=== PATIENT | male | born 1980 | race Caucasian/White ===

== ENCOUNTER → 2017-04-18 | Emergency (ER) | payer MEDICAID, OTHER ==
[~2017-04-18] VITALS: Ht 170.2 cm; Wt 99.8 kg
--- NOTE | 2017-04-18 14:30 | NUR ---
PT PRESENTED TO THE ER WITH A C/O RT KNEE PAIN. PT AMBULATED TO BED #4. URINE SAMPLE OBTAINED.
[2017-04-18 16:10] VITALS: BP 138/89
--- NOTE | 2017-04-18 16:11 | NUR ---
PT REC'D AN ETTA WRAP AND CRUTCHES Crutches dispensed. Pt instructed on proper use of crutches. Patient able to demonstrate correct use of crutches.
--- NOTE | 2017-04-18 16:11 | NUR ---
Patient discharged to home in stable condition. Written and verbal after care instructions given. Patient verbalizes understanding of instruction AND RX. PT AMBULATED OUT WITH CRUTCHES. VSS.
== END | disposition home or self-care (01) ==
LOC: ER 14:09
DX: M25.561 Pain in right knee (principal); W18.09XA Striking against other object with subsequent fall, initial encounter; Y93.89 Activity, other specified; Y92.89 Other specified places as the place of occurrence of the external cause; Y99.8 Other external cause status
CPT/HCPCS: 73564; 99284; A4606; Z7610

== ENCOUNTER 2017-06-24 11:06 | Emergency (ER) | payer OTHER ==
[~2017-06-24] VITALS: Ht 170.2 cm; Wt 98.9 kg
[2017-06-24 11:16] VITALS: BP 143/99
== END 2017-06-24 12:01 | disposition home or self-care (01) ==
LOC: ER 11:08
DX: J11.1 Influenza due to unidentified influenza virus with other respiratory manifestations (principal); J40 Bronchitis, not specified as acute or chronic; R19.7 Diarrhea, unspecified
CPT/HCPCS: A4606; Z7610

== ENCOUNTER 2018-06-07 10:21 | Emergency (ER) | END 2018-06-07 11:02 | disposition home or self-care (01) | DX: J20.9 Acute bronchitis, unspecified (principal) ==

== ENCOUNTER 2019-11-04 21:38 | Emergency (ER) | payer MEDICAID, OTHER ==
[~2019-11-04] VITALS: Ht 170.2 cm; Wt 79.4 kg
--- NOTE | 2019-11-04 22:20 | NUR ---
BIBSELF C/O R FOOT PAIN S/O STEPPED ON NAIL X10HR TIMEKEEPER TDAT NOT UP TO DATE, TO ER BED 4 AWAITING MD IRIZARRY
[2019-11-04] MEDS ORDERED: TDAP [DIPH/PERTUSSIS/TET] 0.5 ML VIAL IM ONE ×2 (22:28→22:30)
[2019-11-04 23:21] VITALS: BP 125/76
== END 2019-11-04 23:21 | disposition home or self-care (01) ==
LOC: ER 21:38
DX: S91.331A Puncture wound without foreign body, right foot, initial encounter (principal); W22.8XXA Striking against or struck by other objects, initial encounter; Y93.89 Activity, other specified; Y92.89 Other specified places as the place of occurrence of the external cause; Y99.8 Other external cause status
CPT/HCPCS: 73630-TC; 90715

== ENCOUNTER 2022-10-27 09:07 | Inpatient (IN) | payer MEDICAID ==
[~2022-10-27] VITALS: Ht 170.2 cm; Wt 83.9 kg
[2022-10-27] MEDS ORDERED: IV NS 0.9% 1,000 ML BAG IV ONE (09:30)
[2022-10-27] MEDS ORDERED: ONDANSETRON HCL/PF 4 MG/2 ML VIAL IVP ONE (09:30)
[2022-10-27 09:39] LABS: BILIRUBIN,URINE NEGATIVE (NEGATIVE); COLOR,URINE YELLOW (YELLOW); LEUKOCYTE ESTERASE ,URINE NEGATIVE (NEGATIVE); NITRITE, URINE NEGATIVE (NEGATIVE); PROTEIN,URINE NEGATIVE (NEGATIVE); UGLUCOSE NEGATIVE (NEGATIVE); UROBILINOGEN,URINE 0.2 EU/dL (0.2)
[2022-10-27] MEDS ORDERED: ONDANSETRON HCL/PF 4 MG/2 ML VIAL ONE (09:43)
[2022-10-27 09:45] LABS: BACTERIA,URINE Rare /HPF (None Seen); RBC,URINE 0-2 /HPF (0-2); SQUAMOUS EPITHELIAL CELL,UR Few /HPF (None Seen); WBC,URINE 0-2 /HPF (0-3)
[2022-10-27 09:58] LABS: CALCIUM, SERUM 8.8 mg/dL (8.5-10.1); CREATININE 0.9 mg/dL (0.6-1.3); POTASSIUM 4.4 mmol/L (3.5-5.1)
[2022-10-27] MEDS ORDERED: MORPHINE SULFATE INJ 2 MG/ML DISP.SYRIN IV ONE (10:00)
[2022-10-27] MEDS ORDERED: MORPHINE SULFATE INJ 4 MG/ML DISP.SYRIN ONE (10:10)
[2022-10-27 11:22] LABS: BASOPHILS % (AUTO) 0.3 % (0.0-2.0); EOSINOPHILS % (AUTO) 1.8 % (0.0-6.0); HEMATOCRIT 42 % (39-51); HEMOGLOBIN 14.1 g/dL (13.5-17.5); LYMPHOCYTES # (AUTO) 2.2 K/uL (0.8-4.8); LYMPHOCYTES % (AUTO) 29.8 % (20.0-44.0); MEAN CORPUSCULAR HGB CONC 34 g/dl (31.0-36.0); MEAN CORPUSCULAR VOLUME 93 fL (80-96); MONOCYTES # (AUTO) 0.6 K/uL (0.1-1.30); MONOCYTES % (AUTO) 8.7 % (2.0-12.0); NEUTROPHILS # (AUTO) 4.3 K/uL (1.8-8.9); NEUTROPHILS % (AUTO) 59.4 % (43.0-81.0); PLATELET COUNT (AUTO) 176 K/uL (150-450); RED BLOOD CELL COUNT(AUTO) 4.49 MIL/uL (4.5-6.0); WHITE BLOOD COUNT (AUTO) 7.3 K/uL (4.3-11.0)
[2022-10-27] MEDS ORDERED: PIPERACILLIN /TAZOBACTAM 3.375 G in IV D5W 50 ML IV ONE (12:00)
[2022-10-27 20:00] VITALS: BP 151/95
[2022-10-27] MEDS ORDERED: HYDROCODONE/APAP 5/325MG TABLET PO PRN (21:00)
[2022-10-27] MEDS ORDERED: Potassium Chloride 10 MEQ in IV D5/ 0.9% NACL 1,000 ML IV PRN (21:00)
[2022-10-27] MEDS ORDERED: ACETAMINOPHEN 325 MG TABLET PO PRN (21:00)
[2022-10-27] MEDS ORDERED: ZOLPIDEM TARTRATE 5 MG TABLET PO PRN (21:00)
[2022-10-27] MEDS ORDERED: HYDROMORPHONE MDV 0.5 MG in IV D5W 50 ML IV PRN (21:00)
[2022-10-27] MEDS ORDERED: ONDANSETRON HCL/PF 4 MG/2 ML VIAL IV PRN (21:00)
[2022-10-27] MEDS ORDERED: PIPERACI/TAZO 3.375GM/D5W 50ML PB IV ONE (23:10)
[2022-10-27] MEDS: PIPERACILLIN /TAZOBACTAM 3.375 G in IV D5W 50 ML IV SCH (23:32)
[2022-10-27] MEDS: IV D5/ 0.9% NACL 1,000 ML IV PRN (23:54)
[2022-10-28] MEDS ORDERED: PIPERACI/TAZO 3.375GM/D5W 50ML PB IV ONE (05:05)
[2022-10-28] MEDS: PIPERACILLIN /TAZOBACTAM 3.375 G in IV D5W 50 ML IV SCH ×4 (05:23→23:15)
[2022-10-28 08:00] VITALS: BP 125/71
[2022-10-28 08:05] LABS: BASOPHILS % (AUTO) 0.4 % (0.0-2.0); EOSINOPHILS % (AUTO) 1.7 % (0.0-6.0); HEMATOCRIT 42 % (39-51); LYMPHOCYTES # (AUTO) 1.5 K/uL (0.8-4.8); LYMPHOCYTES % (AUTO) 24.8 % (20.0-44.0); MEAN CORPUSCULAR HGB CONC 34 g/dl (31.0-36.0); MEAN CORPUSCULAR VOLUME 93 fL (80-96); MONOCYTES # (AUTO) 0.7 K/uL (0.1-1.30); MONOCYTES % (AUTO) 10.5 % (2.0-12.0); NEUTROPHILS # (AUTO) 3.9 K/uL (1.8-8.9); NEUTROPHILS % (AUTO) 62.6 % (43.0-81.0); PLATELET COUNT (AUTO) 171 K/uL (150-450); RED BLOOD CELL COUNT(AUTO) 4.45 MIL/uL (4.5-6.0); WHITE BLOOD COUNT (AUTO) 6.3 K/uL (4.3-11.0)
[2022-10-28 08:30] LABS: ALBUMIN 3.6 g/dL (3.4-5.0); BILIRUBIN,TOTAL 0.7 mg/dL (0.2-1.0); CALCIUM, SERUM 8.9 mg/dL (8.5-10.1); CREATININE 0.9 mg/dL (0.6-1.3); MAGNESIUM 2.3 mg/dL (1.8-2.4); POTASSIUM 3.9 mmol/L (3.5-5.1); TOTAL PROTEIN, SERUM 6.5 g/dL (6.4-8.2)
[2022-10-28] MEDS: IV D5/ 0.9% NACL 1,000 ML IV PRN ×2 (10:37→23:32)
[2022-10-28] MEDS: HYDROMORPHONE 1 MG/1 ML DISP.SYRIN IV PRN ×2 (12:54→22:32)
[2022-10-28 16:18] VITALS: BP 115/77
[2022-10-28 20:00] VITALS: BP 138/80
[2022-10-29] MEDS: PIPERACILLIN /TAZOBACTAM 3.375 G in IV D5W 50 ML IV SCH ×3 (05:02→17:14)
[2022-10-29 08:00] VITALS: BP 137/81
[2022-10-29] MEDS: HYDROMORPHONE 1 MG/1 ML DISP.SYRIN IV PRN ×3 (09:49→23:26)
[2022-10-29] MEDS: IV D5/ 0.9% NACL 1,000 ML IV PRN ×2 (12:03→23:26)
[2022-10-29 16:00] VITALS: BP 148/103
[2022-10-29 20:00] VITALS: BP 158/88
[2022-10-30] MEDS: PIPERACILLIN /TAZOBACTAM 3.375 G in IV D5W 50 ML IV SCH ×4 (00:03→17:39)
[2022-10-30 06:53] LABS: BASOPHILS % (AUTO) 0.3 % (0.0-2.0); EOSINOPHILS % (AUTO) 0.8 % (0.0-6.0); HEMATOCRIT 43 % (39-51); HEMOGLOBIN 14.3 g/dL (13.5-17.5); LYMPHOCYTES # (AUTO) 1.9 K/uL (0.8-4.8); LYMPHOCYTES % (AUTO) 17.3 % (20.0-44.0); MEAN CORPUSCULAR HGB CONC 34 g/dl (31.0-36.0); MEAN CORPUSCULAR VOLUME 92 fL (80-96); MONOCYTES % (AUTO) 9.4 % (2.0-12.0); NEUTROPHILS # (AUTO) 7.8 K/uL (1.8-8.9); NEUTROPHILS % (AUTO) 72.2 % (43.0-81.0); PLATELET COUNT (AUTO) 202 K/uL (150-450); WHITE BLOOD COUNT (AUTO) 10.9 K/uL (4.3-11.0)
[2022-10-30 07:16] LABS: CALCIUM, SERUM 9.2 mg/dL (8.5-10.1); POTASSIUM 3.7 mmol/L (3.5-5.1)
[2022-10-30 08:00] VITALS: BP 145/88
[2022-10-30] MEDS: HYDROMORPHONE 1 MG/1 ML DISP.SYRIN IV PRN ×2 (08:29→14:53)
[2022-10-30] MEDS: IV D5/ 0.9% NACL 1,000 ML IV PRN ×2 (11:15→22:38)
[2022-10-30] MEDS ORDERED: IV NS 0.9% 250 ML IV ONE (11:23)
[2022-10-30] MEDS ORDERED: IOHEXOL-300 100 ML VIAL IV ONE (11:23)
[2022-10-30 16:00] VITALS: BP 139/90
[2022-10-30] MEDS: POLYETHYLENE GLYCOL 3350 17 GM POWD.PACK PO SCH (16:19)
[2022-10-30 20:06] VITALS: BP 143/95
[2022-10-31] MEDS: PIPERACILLIN /TAZOBACTAM 3.375 G in IV D5W 50 ML IV SCH ×5 (00:33→23:02)
[2022-10-31 06:13] LABS: BASOPHILS % (AUTO) 0.3 % (0.0-2.0); HEMATOCRIT 41 % (39-51); LYMPHOCYTES # (AUTO) 1.6 K/uL (0.8-4.8); MEAN CORPUSCULAR HGB CONC 34 g/dl (31.0-36.0); MEAN CORPUSCULAR VOLUME 92 fL (80-96); MONOCYTES # (AUTO) 1.1 K/uL (0.1-1.30); MONOCYTES % (AUTO) 11.8 % (2.0-12.0); NEUTROPHILS # (AUTO) 6.8 K/uL (1.8-8.9); NEUTROPHILS % (AUTO) 69.9 % (43.0-81.0); PLATELET COUNT (AUTO) 198 K/uL (150-450); RED BLOOD CELL COUNT(AUTO) 4.49 MIL/uL (4.5-6.0); WHITE BLOOD COUNT (AUTO) 9.7 K/uL (4.3-11.0)
[2022-10-31 06:33] LABS: CALCIUM, SERUM 9.1 mg/dL (8.5-10.1); POTASSIUM 3.6 mmol/L (3.5-5.1)
[2022-10-31 08:00] VITALS: BP 134/78
[2022-10-31] MEDS ORDERED: HYDROCODONE/APAP 5/325MG TABLET PO PRN (09:00)
[2022-10-31] MEDS: POLYETHYLENE GLYCOL 3350 17 GM POWD.PACK PO SCH (09:32)
[2022-10-31 16:00] VITALS: BP 137/98
[2022-11-01] MEDS: IV D5/ 0.9% NACL 1,000 ML IV PRN (02:16)
[2022-11-01] MEDS: PIPERACILLIN /TAZOBACTAM 3.375 G in IV D5W 50 ML IV SCH (05:23)
[2022-11-01 06:08] LABS: BASOPHILS % (AUTO) 0.5 % (0.0-2.0); EOSINOPHILS % (AUTO) 3.4 % (0.0-6.0); HEMATOCRIT 40 % (39-51); HEMOGLOBIN 14.1 g/dL (13.5-17.5); LYMPHOCYTES # (AUTO) 1.9 K/uL (0.8-4.8); LYMPHOCYTES % (AUTO) 26.9 % (20.0-44.0); MEAN CORPUSCULAR HGB CONC 35 g/dl (31.0-36.0); MEAN CORPUSCULAR VOLUME 91 fL (80-96); MONOCYTES # (AUTO) 0.8 K/uL (0.1-1.30); MONOCYTES % (AUTO) 11.3 % (2.0-12.0); NEUTROPHILS # (AUTO) 4.1 K/uL (1.8-8.9); NEUTROPHILS % (AUTO) 57.9 % (43.0-81.0); PLATELET COUNT (AUTO) 200 K/uL (150-450); RED BLOOD CELL COUNT(AUTO) 4.43 MIL/uL (4.5-6.0); WHITE BLOOD COUNT (AUTO) 7.1 K/uL (4.3-11.0)
[2022-11-01 06:36] LABS: CALCIUM, SERUM 8.5 mg/dL (8.5-10.1); CREATININE 0.9 mg/dL (0.6-1.3); MAGNESIUM 2.1 mg/dL (1.8-2.4); POTASSIUM 3.7 mmol/L (3.5-5.1)
[2022-11-01 08:37] VITALS: BP 132/94
[2022-11-01] MEDS ORDERED: CIPR-262 PO (08:53)
[2022-11-01] MEDS ORDERED: METR500T PO (08:53)
[2022-11-01] MEDS ORDERED: PANT40TA2 PO (08:53)
[2022-11-01] MEDS: POLYETHYLENE GLYCOL 3350 17 GM POWD.PACK PO SCH (09:00)
== END 2022-11-01 09:35 | disposition home or self-care (01) | DRG 244 ==
LOC: ER 09:14 → MED 19:12
PROVIDERS: ADMIT Internal Medicine; ATTEND Internal Medicine
DX: K57.20 Diverticulitis of large intestine with perforation and abscess without bleeding (principal); K21.9 Gastro-esophageal reflux disease without esophagitis; N20.0 Calculus of kidney; Z87.442 Personal history of urinary calculi; Z20.822 Contact with and (suspected) exposure to COVID-19
CPT/HCPCS: 36415; 74178; 80048-TC; 80053-TC; 81001; 83735-TC; 85025-TC; 87081-TC; A4223; C9803; G0378; J1170; J2270; J2405; J2543; J3480; J3490; J7030; J7042; J7050; J7060; Q9967

== ENCOUNTER 2022-11-20 10:02 | Emergency (ER) | payer MEDICAID ==
[~2022-11-20] VITALS: Ht 170.2 cm; Wt 79.5 kg
[~2022-11-20 10:02] MED LIST: CIPR-262 PO; METR500T PO; PANT40TA2 PO
--- NOTE | 2022-11-20 10:09 | NUR ---
BIBS FOR C/O RAJAN LOWER ABDOMINAL PAIN, N/V AND ON AND OFF FEVER. DIAGNOSED WITH DIVERTICULOSIS WEEKS AGO AND GIVEN ANTIBIOTICS, FINISHED ANTIBIOTICS AND STILL EXPERIENCING PAIN. PT VITALS ARE WITHIN NORMAL LIMITS.
[2022-11-20] MEDS ORDERED: ONDANSETRON HCL/PF 4 MG/2 ML VIAL ONE (10:13)
--- NOTE | 2022-11-20 10:21 | NUR ---
PT TAKEN TO CT VIA HARISH
--- NOTE | 2022-11-20 10:21 | NUR ---
IV ESTABLISHED L AC 20G. LABD DRAWN AND COLLECTE DTA BEDSIDE
[2022-11-20] MEDS ORDERED: IOHEXOL-300 100 ML VIAL IV ONE (10:24)
[2022-11-20] MEDS ORDERED: IV NS 0.9% 250 ML IV ONE (10:25)
[2022-11-20] MEDS ORDERED: IV NS 0.9% 1,000 ML BAG IV ONE (10:30)
[2022-11-20] MEDS ORDERED: ONDANSETRON HCL/PF 4 MG/2 ML VIAL IVP ONE (10:30)
--- NOTE | 2022-11-20 10:45 | NUR ---
PT BACK FROM CT VIA HYUN
[2022-11-20 10:46] LABS: BASOPHILS % (AUTO) 0.1 % (0.0-2.0); EOSINOPHILS % (AUTO) 0.3 % (0.0-6.0); HEMATOCRIT 43 % (39-51); HEMOGLOBIN 14.8 g/dL (13.5-17.5); LYMPHOCYTES # (AUTO) 0.8 K/uL (0.8-4.8); LYMPHOCYTES % (AUTO) 9.7 % (20.0-44.0); MEAN CORPUSCULAR HGB CONC 34 g/dl (31.0-36.0); MEAN CORPUSCULAR VOLUME 92 fL (80-96); MONOCYTES # (AUTO) 0.5 K/uL (0.1-1.30); MONOCYTES % (AUTO) 6.6 % (2.0-12.0); NEUTROPHILS # (AUTO) 6.7 K/uL (1.8-8.9); NEUTROPHILS % (AUTO) 83.3 % (43.0-81.0); PLATELET COUNT (AUTO) 197 K/uL (150-450); RED BLOOD CELL COUNT(AUTO) 4.71 MIL/uL (4.5-6.0); WHITE BLOOD COUNT (AUTO) 8.1 K/uL (4.3-11.0)
[2022-11-20 10:59] LABS: CALCIUM, SERUM 9.3 mg/dL (8.5-10.1); CREATININE 0.9 mg/dL (0.6-1.3); POTASSIUM 3.8 mmol/L (3.5-5.1)
[2022-11-20 11:11] LABS: ALBUMIN 4.1 g/dL (3.4-5.0); BILIRUBIN,DIRECT 0.1 mg/dL (0.0-0.2); BILIRUBIN,TOTAL 0.5 mg/dL (0.2-1.0); TOTAL PROTEIN, SERUM 7.7 g/dL (6.4-8.2)
--- NOTE | 2022-11-20 11:22 | NUR ---
DR MORAES AT BEDSIDE FOR EVAL, WITH HIS PA STUDENT.
--- NOTE | 2022-11-20 11:32 | NUR ---
PT WAS URGE TO PROVIDE URINE, PT SAID HE WILL SOON HE FEELS FOR IT.
--- NOTE | 2022-11-20 12:15 | NUR ---
dr wetzel at bedside for re eval.
[2022-11-20] MEDS ORDERED: ONDA4TAB5 PO (12:44)
[2022-11-20] MEDS ORDERED: FAMO-131 PO (12:44)
[2022-11-20] MEDS ORDERED: HYDR-3980 PO (12:44)
[2022-11-20 13:06] VITALS: BP 130/89
== END 2022-11-20 13:07 | disposition home or self-care (01) ==
LOC: ER 10:05
DX: G89.29 Other chronic pain (principal); R10.30 Lower abdominal pain, unspecified; Z79.899 Other long term (current) drug therapy
CPT/HCPCS: 99285; 74177; 96374; 96361; 85025; 80048; 83690; 80076; J2405; J7030; J7050; Q9967

== ENCOUNTER 2023-03-09 11:05 | Emergency (ER) | payer MEDICAID ==
[~2023-03-09] VITALS: Ht 170.2 cm; Wt 81.6 kg
[~2023-03-09 11:05] MED LIST changes: +FAMO-131 PO; +HYDR-3980 PO; +ONDA4TAB5 PO
[2023-03-09] MEDS ORDERED: ONDANSETRON HCL/PF 4 MG/2 ML VIAL ONE (11:23)
[2023-03-09] MEDS ORDERED: MORPHINE SULFATE INJ 4 MG/ML DISP.SYRIN ONE (11:24)
[2023-03-09] MEDS ORDERED: MORPHINE SULFATE INJ 2 MG/ML DISP.SYRIN IV ONE (11:30)
[2023-03-09] MEDS ORDERED: IV NS 0.9% 1,000 ML BAG IV ONE (11:30)
[2023-03-09] MEDS ORDERED: ONDANSETRON HCL/PF 4 MG/2 ML VIAL IVP ONE (11:30)
[2023-03-09 11:48] LABS: BASOPHILS % (AUTO) 0.2 % (0.0-2.0); EOSINOPHILS # (AUTO) 0.1 K/uL (0.0-0.7); EOSINOPHILS % (AUTO) 0.6 % (0.0-6.0); HEMATOCRIT 42 % (39-51); HEMOGLOBIN 13.8 g/dL (13.5-17.5); LYMPHOCYTES # (AUTO) 2.1 K/uL (0.8-4.8); LYMPHOCYTES % (AUTO) 22.7 % (20.0-44.0); MEAN CORPUSCULAR HEMOGLOBIN 30 PG (26.0-33.0); MEAN CORPUSCULAR HGB CONC 33 g/dl (31.0-36.0); MEAN CORPUSCULAR VOLUME 92 fL (80-96); MONOCYTES # (AUTO) 1.1 K/uL (0.1-1.30); MONOCYTES % (AUTO) 11.5 % (2.0-12.0); PLATELET COUNT (AUTO) 185 K/uL (150-450); RED BLOOD CELL COUNT(AUTO) 4.53 MIL/uL (4.5-6.0); RED CELL DISTRIBUTION WIDTH 13.5 % (11.5-15.0); WHITE BLOOD COUNT (AUTO) 9.2 K/uL (4.3-11.0)
[2023-03-09 11:50] LABS: APPEARANCE,URINE CLEAR (CLEAR); BILIRUBIN,URINE NEGATIVE (NEGATIVE); BLOOD, URINE NEGATIVE Ery/uL (NEGATIVE); COLOR,URINE YELLOW (YELLOW); KETONES,URINE NEGATIVE (NEGATIVE); LEUKOCYTE ESTERASE ,URINE NEGATIVE (NEGATIVE); NITRITE, URINE NEGATIVE (NEGATIVE); PH,URINE 6.5 (5.0-8.0); PROTEIN,URINE NEGATIVE (NEGATIVE); UGLUCOSE NEGATIVE (NEGATIVE); UROBILINOGEN,URINE 0.2 EU/dL (0.2)
[2023-03-09 12:02] LABS: CALCIUM, SERUM 9.4 mg/dL (8.5-10.1); CREATININE 0.9 mg/dL (0.6-1.3)
[2023-03-09 12:07] LABS: BILIRUBIN,DIRECT 0.2 mg/dL (0.0-0.2); BILIRUBIN,TOTAL 0.8 mg/dL (0.2-1.0); TOTAL PROTEIN, SERUM 7.5 g/dL (6.4-8.2)
[2023-03-09] MEDS ORDERED: ONDA4TAB5 PO (13:12)
[2023-03-09] MEDS ORDERED: AMOX-430 PO (13:12)
[2023-03-09] MEDS ORDERED: HYDR-3980 PO (13:12)
[2023-03-09 13:43] VITALS: BP 122/78; TEMP 97.6; O2SAT 98
== END 2023-03-09 13:43 | disposition home or self-care (01) ==
LOC: ER 11:20
DX: K57.32 Diverticulitis of large intestine without perforation or abscess without bleeding (principal); R10.32 Left lower quadrant pain
CPT/HCPCS: 99285; 74176; 96374; 96361; 96375; 85025; 80048; 83690; 80076; 81003; 36415; J2270; J2405; J7030

== ENCOUNTER 2023-10-12 10:44 | Emergency (ER) | payer MEDICAID, OTHER ==
[~2023-10-12] VITALS: Ht 170.2 cm; Wt 83.9 kg
[~2023-10-12 10:44] MED LIST changes: +AMOX-430 PO
[2023-10-12] MEDS: IV NS 0.9% 1,000 ML BAG IV ONE (11:12)
[2023-10-12 11:22] LABS: APPEARANCE,URINE CLEAR (CLEAR); BILIRUBIN,URINE NEGATIVE (NEGATIVE); BLOOD, URINE NEGATIVE Ery/uL (NEGATIVE); COLOR,URINE YELLOW (YELLOW); KETONES,URINE NEGATIVE (NEGATIVE); LEUKOCYTE ESTERASE ,URINE NEGATIVE (NEGATIVE); NITRITE, URINE NEGATIVE (NEGATIVE); PROTEIN,URINE NEGATIVE (NEGATIVE); UGLUCOSE NEGATIVE (NEGATIVE); UROBILINOGEN,URINE 0.2 EU/dL (0.2)
[2023-10-12 11:22] LABS: BASOPHILS % (AUTO) 0.6 % (0.0-2.0); EOSINOPHILS # (AUTO) 0.2 K/uL (0.0-0.7); EOSINOPHILS % (AUTO) 3.2 % (0.0-6.0); HEMATOCRIT 45 % (39-51); HEMOGLOBIN 15.1 g/dL (13.5-17.5); LYMPHOCYTES # (AUTO) 2.1 K/uL (0.8-4.8); LYMPHOCYTES % (AUTO) 34.2 % (20.0-44.0); MEAN CORPUSCULAR HEMOGLOBIN 31 PG (26.0-33.0); MEAN CORPUSCULAR HGB CONC 34 g/dl (31.0-36.0); MEAN CORPUSCULAR VOLUME 91 fL (80-96); MONOCYTES # (AUTO) 0.5 K/uL (0.1-1.30); MONOCYTES % (AUTO) 8.4 % (2.0-12.0); NEUTROPHILS # (AUTO) 3.3 K/uL (1.8-8.9); NEUTROPHILS % (AUTO) 53.6 % (43.0-81.0); PLATELET COUNT (AUTO) 230 K/uL (150-450); RED BLOOD CELL COUNT(AUTO) 4.91 MIL/uL (4.5-6.0); RED CELL DISTRIBUTION WIDTH 13.5 % (11.5-15.0); WHITE BLOOD COUNT (AUTO) 6.1 K/uL (4.3-11.0)
[2023-10-12 11:36] LABS: ALBUMIN 4.1 g/dL (3.4-5.0); BILIRUBIN,DIRECT 0.2 mg/dL (0.0-0.2); BILIRUBIN,TOTAL 0.4 mg/dL (0.2-1.0); CALCIUM, SERUM 8.8 mg/dL (8.5-10.1); CREATININE 1.1 mg/dL (0.6-1.3); POTASSIUM 4.9 mmol/L (3.5-5.1); TOTAL PROTEIN, SERUM 7.9 g/dL (6.4-8.2)
[2023-10-12] MEDS ORDERED: IBUP-1955 PO (12:31)
[2023-10-12] MEDS ORDERED: HYDR-4303 PO (12:31)
[2023-10-12] MEDS ORDERED: TAMS-12 PO (12:31)
[2023-10-12 12:44] VITALS: BP 128/77; TEMP 98.3; O2SAT 98
== END 2023-10-12 12:45 | disposition home or self-care (01) ==
LOC: ER 10:49
DX: N20.0 Calculus of kidney (principal); Z87.19 Personal history of other diseases of the digestive system
CPT/HCPCS: 99284; 74176; 96360; 85025; 80048; 83690; 80076; 81003; 36415; J7030

== ENCOUNTER 2024-03-17 08:56 | Emergency (ER) | payer OTHER ==
[~2024-03-17] VITALS: Ht 170.2 cm; Wt 84.8 kg
[~2024-03-17 08:56] MED LIST changes: +HYDR-4303 PO; +IBUP-1955 PO; +TAMS-12 PO
[2024-03-17] MEDS ORDERED: ONDANSETRON HCL/PF 4 MG/2 ML VIAL ONE (09:29)
[2024-03-17] MEDS ORDERED: PANTOPRAZOLE 40 MG VIAL ONE (09:29)
[2024-03-17] MEDS ORDERED: LIDOCAINE VISCOUS 2% UD 15 ML UDC ONE (09:29)
[2024-03-17] MEDS ORDERED: MORPHINE SULFATE INJ 2 MG/ML DISP.SYRIN ONE (09:30)
[2024-03-17] MEDS: IV NS 0.9% 1,000 ML BAG IV ONE (09:30)
[2024-03-17] MEDS: PANTOPRAZOLE 40 MG VIAL IV ONE (09:30)
[2024-03-17] MEDS: MORPHINE SULFATE INJ 2 MG/ML DISP.SYRIN IV ONE (09:30)
[2024-03-17] MEDS: ONDANSETRON HCL/PF 4 MG/2 ML VIAL IVP ONE (09:30)
[2024-03-17] MEDS: LIDOCAINE VISCOUS 2% UD 15 ML UDC MM ONE (09:34)
[2024-03-17 09:37] LABS: BASOPHILS % (AUTO) 0.2 % (0.0-2.0); EOSINOPHILS # (AUTO) 0.1 K/uL (0.0-0.7); HEMATOCRIT 45 % (39-51); HEMOGLOBIN 15.1 g/dL (13.5-17.5); LYMPHOCYTES # (AUTO) 1.9 K/uL (0.8-4.8); LYMPHOCYTES % (AUTO) 24.3 % (20.0-44.0); MEAN CORPUSCULAR HEMOGLOBIN 31 PG (26.0-33.0); MEAN CORPUSCULAR HGB CONC 34 g/dl (31.0-36.0); MEAN CORPUSCULAR VOLUME 92 fL (80-96); MONOCYTES # (AUTO) 0.8 K/uL (0.1-1.30); NEUTROPHILS # (AUTO) 5.1 K/uL (1.8-8.9); NEUTROPHILS % (AUTO) 64.5 % (43.0-81.0); PLATELET COUNT (AUTO) 198 K/uL (150-450); RED BLOOD CELL COUNT(AUTO) 4.85 MIL/uL (4.5-6.0); RED CELL DISTRIBUTION WIDTH 13.7 % (11.5-15.0); WHITE BLOOD COUNT (AUTO) 7.9 K/uL (4.3-11.0)
[2024-03-17 09:59] LABS: BILIRUBIN,DIRECT 0.1 mg/dL (0.0-0.2); BILIRUBIN,TOTAL 0.3 mg/dL (0.2-1.0); CALCIUM, SERUM 8.8 mg/dL (8.5-10.1); CREATININE 0.9 mg/dL (0.6-1.3); POTASSIUM 4.3 mmol/L (3.5-5.1); TOTAL PROTEIN, SERUM 7.4 g/dL (6.4-8.2)
[2024-03-17] MEDS ORDERED: CT SWABBABLE VALVE TRANS SET 1 EA INFUS.SET MC ONE (10:31)
[2024-03-17] MEDS ORDERED: IOHEXOL-300 100 ML VIAL IV ONE (10:31)
[2024-03-17] MEDS ORDERED: IV NS 0.9% 250 ML IV ONE (10:31)
[2024-03-17] MEDS ORDERED: ACET-868 PO (11:26)
[2024-03-17] MEDS ORDERED: OXYC-128 PO (11:26)
[2024-03-17] MEDS ORDERED: ONDA4TAB5 PO (11:26)
[2024-03-17 11:42] VITALS: BP 145/98; TEMP 98.4; O2SAT 99
== END 2024-03-17 11:42 | disposition home or self-care (01) ==
LOC: ER 09:05
DX: K85.90 Acute pancreatitis without necrosis or infection, unspecified (principal); R11.2 Nausea with vomiting, unspecified; F19.10 Other psychoactive substance abuse, uncomplicated; Z87.442 Personal history of urinary calculi; Z79.899 Other long term (current) drug therapy; Z87.19 Personal history of other diseases of the digestive system
CPT/HCPCS: 99285; 74177; 96374; 96375; 96361; 85025; 80048; 83690; 80076; 36415; J2405; J7030; J7050; J2470; J2270; Q9967